=== PATIENT | female | born 1980 | race Caucasian/White ===

== ENCOUNTER 2018-01-02 20:05 | Inpatient (IN) | payer MEDICAID ==
[~2018-01-02] VITALS: Ht 167.6 cm; Wt 73.6 kg
[2018-01-02 20:31] VITALS: Ht 167.6 cm; Wt 73.6 kg
[2018-01-02 20:55] LABS: microscopic required? NO
[2018-01-02 21:04] LABS: BASOPHIL % 0.4 % (0-2); PLATELET COUNT 218 x10^3mcL (130-400); RED CELL DISTRIBUTION WIDTH 13.4 % (11.5-14.5)
[2018-01-02 21:10] LABS: UA SPECIFIC GRAVITY <=1.005 (1.005-1.035); urine erythrocyte NEGATIVE (NEGATIVE)
[2018-01-02 21:12] LABS: CALCIUM 8.8 mg/dL (8.5-10.1); CARBON DIOXIDE 24.5 mmol/L (21-32); CREATININE SERUM 1.3 mg/dL (0.6-1.0)
[2018-01-02 21:18] LABS: ALBUMIN 3.7 g/dL (3.4-5.0); BILIRUBIN TOTAL 0.24 mg/dL (0.20-1.00); TOTAL PROTEIN, SERUM 7.1 g/dL (6.4-8.2)
[2018-01-02 23:42] VITALS: BP 130/87
[2018-01-03 00:04] LABS: PHOSPHOROUS 2.5 mg/dL (2.5-4.9)
[2018-01-03 00:05] LABS: AMPHETAMINE QUAL UR NONE DETECTED
[2018-01-03 00:05] LABS: CHOLESTEROL/HDL RATIO 2.6
[2018-01-03 01:10] LABS: FREE T4 0.88 ng/dL (0.76-1.46); FREE THYROXINE INDEX 2.3 ug/dL (1.4-4.5); T4(THYROXINE) 6.3 ug/dL (4.7-13.3)
[2018-01-03 01:42] LABS: T3 TOTAL 0.89 ng/mL
[2018-01-03 05:46] VITALS: BP 134/69
[2018-01-03 07:14] LABS: BASOPHIL % 0.4 % (0-2); PLATELET COUNT 174 x10^3mcL (130-400); RED CELL DISTRIBUTION WIDTH 13.8 % (11.5-14.5)
[2018-01-03 08:00] LABS: CALCIUM 7.6 mg/dL (8.5-10.1); CARBON DIOXIDE 23.2 mmol/L (21-32); CHLORIDE SERUM 112 mmol/L (98-107); GFR1 > 60 mL/min; GLUCOSE SERUM 93 mg/dL (74-106); MAGNESIUM 1.9 mg/dL (1.8-2.4); PHOSPHOROUS 4.4 mg/dL (2.5-4.9); POTASSIUM SERUM 4.4 mmol/L (3.5-5.1); SODIUM SERUM 142 mmol/L (136-145)
[2018-01-03 09:05] VITALS: BP 105/62
[2018-01-03 13:45] VITALS: BP 113/73
[2018-01-03 18:25] VITALS: BP 109/68
[2018-01-03 20:52] VITALS: BP 110/38
[2018-01-04 05:24] VITALS: BP 107/64
[2018-01-04 07:15] LABS: CALCIUM 7.9 mg/dL (8.5-10.1); CARBON DIOXIDE 24.3 mmol/L (21-32); CHLORIDE SERUM 111 mmol/L (98-107); CREATININE SERUM 0.7 mg/dL (0.6-1.0); GFR1 > 60 mL/min; GLUCOSE SERUM 86 mg/dL (74-106); MAGNESIUM 1.8 mg/dL (1.8-2.4); PHOSPHOROUS 3.7 mg/dL (2.5-4.9); SODIUM SERUM 142 mmol/L (136-145)
[2018-01-04 07:17] LABS: BASOPHIL % 0.3 % (0-2); PLATELET COUNT 160 x10^3mcL (130-400); RED CELL DISTRIBUTION WIDTH 14.1 % (11.5-14.5)
[2018-01-04 10:24] VITALS: BP 111/69
[2018-01-04] MEDS ORDERED: IMITREX25 MG PO (15:46)
[2018-01-04] MEDS ORDERED: SIMETHICONE80 MG CH (15:46)
[2018-01-04] MEDS ORDERED: PYR200 PO (16:07)
[2018-01-04 17:26] VITALS: BP 111/69; BP 112/75
== END 2018-01-04 18:30 | disposition home or self-care (01) | DRG 282 ==
LOC: ED 20:05 → DU 22:57
PROVIDERS: Emergency Medicine; Student in an Organized Health Care Education/Training Program
DX: K85.90 Acute pancreatitis without necrosis or infection, unspecified (principal); N17.0 Acute kidney failure with tubular necrosis; E87.8 Other disorders of electrolyte and fluid balance, not elsewhere classified; A54.9 Gonococcal infection, unspecified; B02.9 Zoster without complications; Z80.9 Family history of malignant neoplasm, unspecified; Z83.3 Family history of diabetes mellitus; Z82.3 Family history of stroke; Z82.49 Family history of ischemic heart disease and other diseases of the circulatory system; R30.0 Dysuria
CPT/HCPCS: 83880; 84439; 87491; 87591; J0696; J1885; J2405; J3010; J7030; Q0092; Q9966; Q9967

== ENCOUNTER 2018-01-18 15:24 | Emergency (ER) | payer MEDICAID ==
[~2018-01-18] VITALS: Ht 167.6 cm; Wt 70.3 kg
[~2018-01-18 15:24] MED LIST: IMITREX25 MG PO; PYR200 PO; SIMETHICONE80 MG CH
[2018-01-18 15:27] VITALS: Ht 167.6 cm; Wt 70.3 kg
[2018-01-18 16:31] LABS: BASOPHIL % 0.4 % (0-2); PLATELET COUNT 222 x10^3mcL (130-400); RED CELL DISTRIBUTION WIDTH 13.8 % (11.5-14.5)
[2018-01-18 16:42] LABS: CALCIUM 9.6 mg/dL (8.5-10.1); CARBON DIOXIDE 23.5 mmol/L (21-32); CHLORIDE SERUM 104 mmol/L (98-107); CREATININE SERUM 0.9 mg/dL (0.6-1.0); GFR1 > 60 mL/min; GLUCOSE SERUM 91 mg/dL (74-106); POTASSIUM SERUM 3.9 mmol/L (3.5-5.1); SODIUM SERUM 139 mmol/L (136-145)
[2018-01-18 16:47] LABS: ALBUMIN 4.1 g/dL (3.4-5.0); ALKALINE PHOSPHATASE 52 U/L (46-116); ALT/SGPT 33 U/L (14-59); AST/SGOT 25 U/L (15-37); LIPASE 210 IU/L (73-393); TOTAL PROTEIN, SERUM 7.5 g/dL (6.4-8.2)
[2018-01-18 19:25] VITALS: BP 98/66
== END 2018-01-18 19:57 | disposition home or self-care (01) ==
LOC: ED 15:24
PROVIDERS: Emergency Medicine
DX: R10.13 Epigastric pain (principal); R10.11 Right upper quadrant pain; R11.0 Nausea
CPT/HCPCS: J2270; J2405; J7040